=== PATIENT | female | born 1940 | race Hispanic/Latino ===

== ENCOUNTER → 2019-03-14 | Outpatient (CLI) | payer OTHER, MEDICARE ==
[~2019-03-14] MED LIST: AEC81 PO; CETI10TA57 PO; DOCU100C33 PO; ESOM40CA PO; ISOS30TA6 PO; LISI1TAB28 PO; METF-444 PO; MONT10TA24 PO; TOLT4CAP PO; VITAD50000 PO
== END | disposition home or self-care (01) ==
LOC: RAH 14:26
PROVIDERS: ATTEND Internal Medicine
DX: M17.0 Bilateral primary osteoarthritis of knee (principal); M25.561 Pain in right knee
CPT/HCPCS: 73502; 73560

== ENCOUNTER → 2019-07-29 | Outpatient (CLI) | payer OTHER, MEDICARE | END | disposition home or self-care (01) | LOC: RAH 09:09 | PROVIDERS: ATTEND Internal Medicine Gastroenterology | DX: K76.0 Fatty (change of) liver, not elsewhere classified (principal); R16.0 Hepatomegaly, not elsewhere classified; K80.20 Calculus of gallbladder without cholecystitis without obstruction | CPT/HCPCS: 76700 ==